=== PATIENT | female | born 1980 | race Caucasian/White ===

== ENCOUNTER 2021-06-14 19:17 | Emergency (ER) | payer BC ==
[~2021-06-14] VITALS: Ht 157.5 cm; Wt 83.9 kg
[2021-06-14] MEDS ORDERED: LEVO-T100 MCG PO (19:32)
[2021-06-14] MEDS ORDERED: ADVAIR 100-501 EACH INH (19:33)
[2021-06-14 20:39] LABS: ABSOLUTE BASOPHILS 0.1 thou/uL (0.0-0.2); ABSOLUTE EOSINOPHILS 0.6 thou/uL (0.0-0.7); ABSOLUTE LYMPHOCYTES 3.2 thou/uL (0.8-5.3); ABSOLUTE MONOCYTES 0.8 thou/uL (0.0-1.2); ABSOLUTE NEUTROPHILS 6.9 thou/uL (1.6-8.1); BASOPHILS 1.3 %; EOSINOPHILS 5.4 %; HEMOGLOBIN 13.6 gm/dL (12.0-15.0); LYMPHOCYTES 27.1 %; MCH 28.5 pg (26.0-34.0); MCHC 33.2 g/dL (28.0-37.0); MONOCYTES 7.3 %; MPV 7.5 fl. (7.2-11.1); NUCLEATED RBCS 0 /100WBC; PLATELET COUNT* 357 thou/uL (150-400); POLYS 58.9 %; RBC 4.77 mil/uL (4.20-5.00); RDW-CV 13.3 % (10.5-14.5); WBC 11.7 thou/uL (4.0-11.0)
[2021-06-14 20:45] LABS: CALCIUM 8.6 mg/dL (8.5-10.1); CREATININE 0.9 mg/dL (0.6-1.3); POTASSIUM 3.7 mmol/L (3.5-5.1)
[2021-06-14 20:50] LABS: ALBUMIN 3.5 g/dL (3.4-5.0); TOTAL BILIRUBIN 0.4 mg/dL (<0.1-1.0); TOTAL PROTEIN 7.6 g/dL (6.4-8.2)
[2021-06-14 21:51] VITALS: BP 129/54
== END 2021-06-14 21:51 | disposition still patient (30) ==
LOC: M.ERS 19:17
PROVIDERS: Physician Assistant
DX: T18.128A Food in esophagus causing other injury, initial encounter (principal); Z20.822 Contact with and (suspected) exposure to COVID-19; E03.9 Hypothyroidism, unspecified; J45.909 Unspecified asthma, uncomplicated; Z79.899 Other long term (current) drug therapy; Z88.0 Allergy status to penicillin; X58.XXXA Exposure to other specified factors, initial encounter; Y93.89 Activity, other specified; Y92.89 Other specified places as the place of occurrence of the external cause; Y99.8 Other external cause status